=== PATIENT | female | born 1985 | race Asian ===

== ENCOUNTER 2019-04-04 12:40 | Outpatient (CLI) | payer OTHER | END 2019-04-04 19:31 | disposition home or self-care (01) | LOC: RAD 12:40 | DX: S20.219D Contusion of unspecified front wall of thorax, subsequent encounter (principal) ==

== ENCOUNTER 2021-03-14 16:28 | Emergency (ER) | payer OTHER ==
[~2021-03-14] VITALS: Ht 162.6 cm; Wt 58.1 kg
[2021-03-14 16:35] VITALS: BP 105/52; TEMP 99.3
[2021-03-14 17:45] LABS: PLATELET COUNT 253 K/uL (152-353)
[2021-03-14 17:58] LABS: POTASSIUM 3.6 mmol/L (3.6-5.2)
== END 2021-03-14 19:40 | disposition home or self-care (01) ==
LOC: ED 16:28
PROVIDERS: Emergency Medicine Emergency Medical Services
DX: J01.80 Other acute sinusitis (principal); E86.0 Dehydration; Z3A.17 17 weeks gestation of pregnancy
CPT/HCPCS: 80048; 80307; 81000; 85027; 96360; 96361; 96365; 99284; J0696

== ENCOUNTER 2021-08-21 09:49 | Emergency (ER) | payer OTHER ==
[~2021-08-21] VITALS: Ht 162.6 cm; Wt 63.5 kg
[2021-08-21 09:49] VITALS: TEMP 97.4
[2021-08-21 11:17] LABS: PLATELET COUNT 327 K/uL (152-353)
[2021-08-21 11:20] LABS: POTASSIUM 3.8 mmol/L (3.6-5.2)
[2021-08-21 11:41] LABS: PARTIAL THROMBOPLASTIN TIME 29.2 SECONDS (24.5-33.6)
[2021-08-21 14:16] VITALS: BP 133/70
== END 2021-08-21 14:30 | disposition home or self-care (01) ==
LOC: ED 09:49
PROVIDERS: Hospitalist
DX: R07.89 Other chest pain (principal)
CPT/HCPCS: 36415; 80053; 82550; 83880; 84484; 85027; 85379; 85610; 85730; 93005; 99284; Q9963

== ENCOUNTER 2022-04-19 06:45 | Emergency (ER) | payer OTHER ==
[~2022-04-19] VITALS: Ht 162.6 cm; Wt 72.6 kg
[2022-04-19 08:15] VITALS: BP 103/63; TEMP 98.5
== END 2022-04-19 08:15 | disposition home or self-care (01) ==
LOC: ED 06:45
DX: M54.59 Other low back pain (principal); M53.3 Sacrococcygeal disorders, not elsewhere classified; M25.652 Stiffness of left hip, not elsewhere classified; M25.651 Stiffness of right hip, not elsewhere classified; E66.8 Other obesity
CPT/HCPCS: 81002; 96372; 99282; 99283; J1885; J2360